=== PATIENT | female | born 1955 | race Caucasian/White ===

== ENCOUNTER 2019-03-20 08:26 | Day surgery (SDC) | payer MEDICARE ==
[2019-03-20] MEDS ORDERED: Lactated Ringers 1,000 ML IV SCH (08:45)
[2019-03-20] MEDS ORDERED: Propofol 200 MG/20 ML SDV ONE (08:46)
[2019-03-20] MEDS ORDERED: Midazolam 1 MG/ML 2 ML SDV ONE (08:46)
[2019-03-20] MEDS ORDERED: fentaNYL 100 MCG/2 ML SDV ONE (08:46)
--- NOTE | 2019-03-20 13:15 | OR ---
DATE OF PROCEDURE: 03/20/2019 SURGEON: Mateo Yi MD PREOPERATIVE DIAGNOSIS: Colon cancer screening. POSTOPERATIVE DIAGNOSES: Diverticulosis; prominent erythematous ileocecal valve; small colon polyp, 12 cm from the anal verge. PROCEDURES PERFORMED: Colonoscopy to the cecum with biopsy of ileocecal valve and biopsy resection of small polyp, 12 cm from the anal verge. ANESTHESIA: IV anesthesia with monitored anesthesia care. INDICATION: This 63-year-old white female is referred for a colonoscopy for colon cancer screening. She says her last colonoscopic exam was done about 14 years ago. I counseled her for the procedure, including risks and alternatives, and she gave her informed consent to proceed. DESCRIPTION OF PROCEDURE: The patient was placed in the left lateral decubitus position. IV anesthesia was administered by the Anesthesia Service. Time-out was held. A rectal exam was performed, which was unremarkable. The flexible video Olympus colonoscope was introduced through her anus, up her rectum and out her colon, all way to the cecum. En route, we saw multiple diverticula. There was no bleeding or inflammation associated with any of them. Once the cecum was reached, the scope was slowly withdrawn examining the mucosa throughout. The ileocecal valve was noted to be erythematous and quite prominent. We obtained multiple biopsies of this. The scope was withdrawn further with no other additional new lesions noted, until we reached 12 cm from the anal verge. Here, a small polyp was seen, which was removed with the biopsy forceps. The scope was brought back in the rectum, where it was retroflexed. The distal rectum appeared unremarkable. The scope was straightened and removed. She tolerated the procedure well. Mateo Yi MD /[id number]
== END 2019-03-20 11:43 | disposition home or self-care (01) ==
LOC: JP.SDS 08:26
PROVIDERS: ATTEND Surgery
DX: Z12.11 Encounter for screening for malignant neoplasm of colon (principal); D12.8 Benign neoplasm of rectum; K57.30 Diverticulosis of large intestine without perforation or abscess without bleeding; K63.89 Other specified diseases of intestine; M19.90 Unspecified osteoarthritis, unspecified site
CPT/HCPCS: 45380; J2250; J2704; J3010; J7120; 88305

== ENCOUNTER 2024-04-12 06:07 | Day surgery (SDC) | payer MEDICARE ==
[2024-04-12] MEDS: Sodium Chloride 0.9% 1,000 ML IV SCH (07:08)
[2024-04-12] MEDS ORDERED: Propofol 200 MG/20 ML SDV ONE (07:22)
[2024-04-12] MEDS ORDERED: fentaNYL 50 MCG/ML SDV ONE (07:22)
[2024-04-12] MEDS ORDERED: Midazolam 1 MG/ML 2 ML SDV ONE (07:22)
== END 2024-04-12 09:20 | disposition home or self-care (01) ==
LOC: JP.SDS 06:07
PROVIDERS: ATTEND Surgery
DX: Z12.11 Encounter for screening for malignant neoplasm of colon (principal); K57.30 Diverticulosis of large intestine without perforation or abscess without bleeding; E78.5 Hyperlipidemia, unspecified; Z86.0100 Personal history of colon polyps, unspecified
CPT/HCPCS: G0105; J2250; J2704; J3010; J7030